=== PATIENT | female | born 1960 | race Hispanic/Latino ===

== ENCOUNTER 2017-07-25 07:56 | Outpatient (RCR) | payer BC | END 2017-08-17 | LOC: OT 07:56 | PROVIDERS: ATTEND Surgery Surgery of the Hand | DX: M65.311 Trigger thumb, right thumb (principal); M65.341 Trigger finger, right ring finger; M65.351 Trigger finger, right little finger; M25.641 Stiffness of right hand, not elsewhere classified | CPT/HCPCS: 97139 ==

== ENCOUNTER → 2021-04-20 | Day surgery (SDC) | payer BC, MEDICARE ==
[~2021-04-20] MED LIST: BALANCED SALT SOLN (OPTH) 15 ML BTL IO ONE; FENTANYL CITRATE/PF 100MCG/2 ML INJ ONE; GABAPENTIN300 MG PO; LIDOCAINE 2% /EPINEPHRINE 20 ML SDV INJ ONE; LOSARTAN-HCTZ1 EACH PO; MIDAZOLAM HCL 2 MG/2 ML VIAL ONE; NEOMYCIN/POLYMYXIN/DEX (OPTH) 3.5 GM TUBE ONE; OMEPRAZOLE40 MG PO; POVIDONE IODINE 5% (OPTH) 30 ML BTL ONE
[2021-04-20 14:48] VITALS: BP 114/68
== END | disposition home or self-care (01) ==
LOC: OR 11:00
PROVIDERS: ATTEND Ophthalmology
DX: H02.834 Dermatochalasis of left upper eyelid (principal); H02.831 Dermatochalasis of right upper eyelid; E66.9 Obesity, unspecified; Z88.6 Allergy status to analgesic agent; Z01.812 Encounter for preprocedural laboratory examination; Z20.822 Contact with and (suspected) exposure to COVID-19; Z68.31 Body mass index [BMI] 31.0-31.9, adult
CPT/HCPCS: 15823; J2001; J2250; J3010; U0002